=== PATIENT | female | born 1995 | race Caucasian/White ===

== ENCOUNTER 2017-01-07 20:52 | Emergency (ER) | payer OTHER ==
[~2017-01-07] VITALS: Ht 162.6 cm; Wt 74.8 kg
[~2017-01-07 20:52] MED LIST: MOTR200T44 PO; TYLE325T5 PO
[2017-01-07] MEDS ORDERED: CLINDAMYCIN 900 MG in APPROPRIATE DILUENT 1 EA IV ONE (22:00)
[2017-01-07] MEDS ORDERED: MORPHINE 4 MG/ML 1ML SYRINGE IV ONE (22:00)
[2017-01-07] MEDS ORDERED: ONDANSETRON 4MG/2ML VIAL (J2405) IV ONE (22:00)
[2017-01-07] MEDS ORDERED: ACETAMINOPHEN 325 MG TAB PO ONE (22:15)
[2017-01-07] MEDS ORDERED: dexameTHASONE 20 MG/5 ML VIAL (J1100) IV ONE (22:15)
[2017-01-07 22:45] LABS: BASO % 0.1 % (0.0-1.0); EOS % 0.1 % (0.0-3.0); LARGE UNSTAINED CELL # 0.2 K/mm3 (0.0-0.4); LARGE UNSTAINED CELL % 1.1 % (0.0-4.0); LYMPH # 0.7 K/mm3 (1.5-6.5); LYMPH % 3.4 % (24.0-44.0); MEAN CORPUSCULAR HEMOGLOBIN 31.6 pg (27.0-33.0); MEAN CORPUSCULAR HGB CONC 34.1 g/dl (32.0-36.5); MEAN CORPUSCULAR VOLUME 92.6 fl (80.0-96.0); MONO # 1.6 K/mm3 (0.0-0.8); MONO % 7.7 % (0.0-5.0); NEUTROPHILS # 17.9 K/mm3 (1.8-7.7); NEUTROPHILS % 87.7 % (36.0-66.0); PLATELET COUNT, AUTOMATED 210 k/mm3 (150-450); RED CELL DISTRIBUTION WIDTH 12.6 % (11.5-14.5); WHITE BLOOD COUNT 20.4 K/mm3 (4.0-10.0)
[2017-01-07 22:57] LABS: ANION GAP 9 MEQ/L (8-16); BLOOD UREA NITROGEN 9 MG/DL (7-18); CALCIUM LEVEL 9.3 MG/DL (8.5-10.1); CARBON DIOXIDE LEVEL 26 MEQ/L (21-32); CHLORIDE LEVEL 100 MEQ/L (98-107); GLOMERULAR FILTRATION RATE > 60.0 (>60); GLUCOSE, FASTING 99 MG/DL (70-105); POTASSIUM SERUM 3.6 MEQ/L (3.5-5.1); SODIUM LEVEL 135 MEQ/L (136-145)
[2017-01-07] MEDS ORDERED: ISOVUE-370 76% 100ML VIAL (Q9967) As Ordered ONE (23:00)
[2017-01-07] MEDS ORDERED: CLEO300C2 PO (23:56)
[2017-01-08] VITALS: BP 119/66
--- NOTE | 2017-01-08 08:49 | REPUSA ---
CLINICAL HISTORY: Suspected peritonsillar abscess formation. TECHNIQUE: Multiple axial CT images were obtained through the neck with IV contrast material. MPR cor onal and sagittal sequences were obtained. COMMENTS: Bilateral enlarged palatine tonsils. 1.5 cm right peritonsillar abscess formation. Free fluid in the right peritonsillar fat suggestive of peritonsillar phlegmon formation. Mild enlarged cervical lymph nodes with the largest measuring 1.3 cm. The piriform sinuses are normal. There is no supra or infraglottic laryngeal mass. The proximal trach ea is normal. There is no paravertebral soft tissue mass. The salivary glands are normal. There is no deep cervical or jugular lymphadenopathy. The paravertebral soft tissue space is normal. Limited images through the posterior fossa demonstrate no evidence for tonsilar herniation. Evaluation of the visualized lung apices reveals no evidence for abnormality. IMPRESSION: Bilateral changes of tonsillitis. Right peritonsillar phlegmon formation. Right peritonsillar abscess formation. No critical airway narrowing. Mild enlarged reactive cervical lymph nodes. Thank you for your kind referral of this patient.
== END 2017-01-08 00:06 | disposition left against medical advice (07) ==
LOC: M ED 21:48
DX: J36 Peritonsillar abscess (principal); F17.210 Nicotine dependence, cigarettes, uncomplicated; Z88.5 Allergy status to narcotic agent

== ENCOUNTER 2017-01-08 11:56 | Emergency (ER) | payer OTHER ==
[~2017-01-08] VITALS: Ht 162.6 cm; Wt 74.8 kg
[~2017-01-08 11:56] MED LIST changes: +CLEO300C2 PO
[2017-01-08] MEDS ORDERED: NS 1,000 ML IV ONE (13:15)
[2017-01-08] MEDS ORDERED: CLINDAMYCIN 900 MG in APPROPRIATE DILUENT 1 EA IV ONE (13:15)
[2017-01-08] MEDS ORDERED: dexameTHASONE 20 MG/5 ML VIAL (J1100) IV ONE (13:15)
[2017-01-08] MEDS ORDERED: LIDOCAINE W/EPINEPHRINE 1% 20ML VIAL As Ordered ONE (16:31)
[2017-01-08] MEDS ORDERED: LIDOCAINE W/EPINEPHRINE 1% 20ML VIAL SC ONE (16:45)
[2017-01-08 17:11] VITALS: BP 116/65
--- NOTE | 2017-01-13 12:42 | HPE ---
DATE OF ADMISSION: 01/08/2017 The patient is a 21-year-old female who presents with a history of sore throat which has been going on over the last week. She has not received any treatment. Examination today shows she has a right paratonsillar swelling. IMPRESSION: The patient has a right paratonsillar abscess. In the emergency room, I infiltrated the area with lidocaine with epinephrine. I then made an incision and drained purulent fluid from the paratonsillar space. The patient tolerated the procedure well. IMPRESSION: The patient had right paratonsillar abscess. Incision and drainage was performed. The patient can go home on oral antibiotic therapy and analgesic. The patient should return should her symptoms recur.
== END 2017-01-08 17:15 | disposition home or self-care (01) ==
LOC: M ED 13:00
DX: J36 Peritonsillar abscess (principal); Z88.5 Allergy status to narcotic agent

== ENCOUNTER 2017-02-05 00:54 | Emergency (ER) | payer OTHER ==
[~2017-02-05] VITALS: Ht 162.6 cm; Wt 81.6 kg
[2017-02-05 01:33] VITALS: BP 146/84
== END 2017-02-05 03:00 | disposition left against medical advice (07) ==
LOC: M ED 02:57
DX: R10.9 Unspecified abdominal pain (principal); Z53.21 Procedure and treatment not carried out due to patient leaving prior to being seen by health care provider

== ENCOUNTER → 2017-04-16 | Outpatient (CLI) | payer OTHER ==
[~2017-04-16] MED LIST changes: +FLOM5CAP PO; +ONDA4TAB5 PO
--- NOTE | 2017-04-17 04:54 | REP ---
Clinical: Anatomical evaluation. Comparison: None . Findings: Examination demonstrates a single live intrauterine in variable presentation. motion is identified by technologist. Placenta is noted posteriorly and grade zero without evidence for placenta previa or abruption. Amniotic fluid volume is normal. Cervix measures 4.0 cm in length and appears closed. No evidence for nuchal cord. Gestational age by LMP 17 weeks 3 days with SOFIYA 09/21/2017 . Gestational age by current measurements 17 weeks 4 day with SOFIYA is 09/20/2018 . FHR equals 144 beats per minute. BPD 3.8 cm 17 weeks 4 days HC 14.0 cm 17 weeks 2 days AC 12.6 cm 18 weeks 1 day FL 2.3 cm 16 weeks 6 days HL 2.5 cm 818 weeks 0 days HC/AC ratio 1.11 Estimated weight 190 grams ( 50th percentile). Anatomical assessment demonstrates normal structures including cranium, choroid plexus, cavum, cerebellum/posterior fossa, diaphragm, stomach, cord insertion/three-vessel cord, kidneys/bladder, and extremities. Limited evaluation of the facial features, heart/ventricular outflow tracts, lungs and spine. Impression: Single live intrauterine in variable presentation demonstrating appropriate interval growth. Anatomical limitations as described above. Remainder examination is normal. Signed by Angel Salvador MD 04/17/2017 04:45 A
== END ==
LOC: M RAD 16:00
PROVIDERS: ATTEND Nurse Practitioner Adult Health
DX: Z36 Encounter for antenatal screening of mother (principal); Z3A.17 17 weeks gestation of pregnancy

== ENCOUNTER 2017-05-17 03:05 | Outpatient (CLI) | payer OTHER ==
[~2017-05-17] VITALS: Ht 160 cm; Wt 79.0 kg
[~2017-05-17 03:05] MED LIST changes: -FLOM5CAP PO; -ONDA4TAB5 PO
[2017-05-17 03:20] VITALS: BP 121/63
[2017-05-17 04:37] LABS: CALCIUM OXALATE CRYSTALS MODERATE
[2017-05-17] MEDS ORDERED: LR 1,000 ML IV SCH (05:15)
[2017-05-17] MEDS ORDERED: LACTATED RINGER'S 1000 ML IV ONE (05:15)
[2017-05-17] MEDS ORDERED: FLUCONAZOLE 50MG TABLET PO ONE (05:30)
[2017-05-17 06:22] LABS: MEAN CORPUSCULAR HEMOGLOBIN 33.3 pg (27.0-33.0); MEAN CORPUSCULAR HGB CONC 35.1 g/dl (32.0-36.5); MEAN CORPUSCULAR VOLUME 94.8 fl (80.0-96.0); RED CELL DISTRIBUTION WIDTH 12.8 % (11.5-14.5); WHITE BLOOD COUNT 15.9 K/mm3 (4.0-10.0)
[2017-05-17 07:05] VITALS: BP 113/60
[2017-05-17] MEDS ORDERED: FLOM5CAP PO (08:49)
[2017-05-17] MEDS ORDERED: TAMSULOSIN 0.4 MG CAP PO SCH (09:00)
[2017-05-17] MEDS ORDERED: ONDA4TAB5 PO (09:15)
[2017-05-17 09:17] VITALS: BP 112/59
--- NOTE | 2017-05-17 10:26 | IPNPDOC ---
Text Note Date of Service The patient was seen on 05/17/17. NOTE Subjective: Patient is a 21 year old female who is a at 21.6 wks gestation based off of her LMP. She receives care from [facility]. She reports to L&D with complaints of vaginal pressure and and discharge. She reports this occurring for a few days. States that she had some back pain tonight with nausea and vomiting. Reports vomiting 6 times tonight. She reports slight nausea. States she feels dehydrated. Reports active movement. Denies vaginal bleeding or leaking of fluid. Objective: VS stable. Abdomen soft to palpation. No contractions noted on EFM. Doppler FHR 145. CVA tenderness right flank. Sterile speculum done and wet prep done. Moderate amount of yellow discharge done. Negative whiff test, Large amount of hyphae noted with small amount of yeast buds. Moderate amount of white blood cells noted in wet prep. Cervix appears multiporous and closed. Assessment: IUP AT 21.6 WKS gestation, kidney stone, candidiasis of the vagina Plan: UA consistent with a kidney stone. Patient has had a history of a kidney stone with similar symptoms. IV started with 800 cc bolus of LR then at 250cc/ hr. Given diflucan 1 tab. Given a dose of Flomax and 13 tab sent to pharmacy to take daily until stone passes. Patient reports she feels much better without nausea since she was given a fluid bolus. Patient to be discharged to home after her second bag of fluid is complete. Education done with patient on signs and symptoms that she needs to review with her providers. Patient to continue following up for her routine OB appointments. VS,Los, I+O VS, Alexsandere, I+O Laboratory Tests 05/17/17 06:01 Red Blood Count 3.26 L, Mean Corpuscular Volume 94.8, Mean Corpuscular Hemoglobin 33.3 H, Mean Corpuscular Hemoglobin Concent 35.1, Red Cell Distribution Width 12.8 Vital Signs Date Time Temp Pulse Resp B/P (MAP) Pulse Ox O2 Delivery O2 Flow Rate FiO2 05/17/17 09:17 97.3 86 18 112/59 (76) YADI MALIK CNM May 17, 2017 10:26
== END 2017-05-17 09:25 | disposition home or self-care (01) ==
LOC: M LDO 03:05
PROVIDERS: ATTEND Advanced Practice Midwife
DX: O99.612 Diseases of the digestive system complicating pregnancy, second trimester (principal); B37.3 Candidiasis of vulva and vagina; O21.9 Vomiting of pregnancy, unspecified; O26.892 Other specified pregnancy related conditions, second trimester; Z3A.21 21 weeks gestation of pregnancy; Z87.442 Personal history of urinary calculi

== ENCOUNTER 2017-08-24 21:33 | Outpatient (CLI) | payer OTHER ==
[~2017-08-24 21:33] MED LIST changes: +FLOM5CAP PO; +ONDA4TAB5 PO
[2017-08-24 22:53] LABS: MEAN CORPUSCULAR HEMOGLOBIN 32.3 pg (27.0-33.0); MEAN CORPUSCULAR HGB CONC 34.1 g/dl (32.0-36.5); MEAN CORPUSCULAR VOLUME 94.6 fl (80.0-96.0); PLATELET COUNT, AUTOMATED 252 10^3/uL (150-450); RED CELL DISTRIBUTION WIDTH 12.9 % (11.5-14.5); WHITE BLOOD COUNT 14.7 10^3/uL (4.0-10.0)
[2017-08-24 23:33] LABS: ALT/SGPT 16 U/L (12-78); AST/SGOT 15 U/L (7-37); BILIRUBIN,TOTAL 0.2 MG/DL (0.2-1.0); CREATININE FOR GFR 0.58 MG/DL (0.55-1.02); GLOMERULAR FILTRATION RATE > 60.0 (>60); URIC ACID 4.6 MG/DL (2.6-6.0)
== END 2017-08-24 23:40 | disposition home or self-care (01) ==
LOC: M LDO 21:33
PROVIDERS: ATTEND Advanced Practice Midwife
DX: O47.03 False labor before 37 completed weeks of gestation, third trimester (principal); Z3A.36 36 weeks gestation of pregnancy; R51 Headache; Z88.5 Allergy status to narcotic agent

== ENCOUNTER 2017-09-01 19:39 | Outpatient (CLI) | payer MEDICAID, OTHER ==
[~2017-09-01] VITALS: Ht 160 cm; Wt 92.0 kg
== END 2017-09-01 22:10 | disposition home or self-care (01) ==
LOC: M LDO 19:39
PROVIDERS: ATTEND Obstetrics & Gynecology
DX: O47.1 False labor at or after 37 completed weeks of gestation (principal); Z3A.37 37 weeks gestation of pregnancy; Z88.5 Allergy status to narcotic agent

== ENCOUNTER 2017-09-15 11:58 | Inpatient (IN) | payer MEDICAID ==
[2017-09-15] MEDS ORDERED: OXYTOCIN 30 UNITS IN 0.9% NaCl 500ML IV BAG (J2590) As Ordered (13:23)
[2017-09-15 13:35] LABS: MEAN CORPUSCULAR VOLUME 94.3 fl (80.0-96.0); PLATELET COUNT, AUTOMATED 232 10^3/uL (150-450); RED CELL DISTRIBUTION WIDTH 12.7 % (11.5-14.5); WHITE BLOOD COUNT 13.1 10^3/uL (4.0-10.0)
[2017-09-15] MEDS: OXYTOCIN DRIP 30 UNITS in APPROPRIATE DILUENT 1 EA IV ×2 (13:36→18:50)
[2017-09-15] MEDS: LACTATED RINGER'S 1000 ML IV (14:06)
[2017-09-15] MEDS: LR 1,000 ML IV (14:08)
[2017-09-15] MEDS: BUTORPHANOL 2 MG/ML INJ (J0595) IV (14:27)
[2017-09-15] MEDS: PROMETHAZINE INJ 25 MG/ML VIAL (J2550) IV (14:27)
[2017-09-15] MEDS ORDERED: IBUPROFEN 800 MG TAB PO (19:00)
[2017-09-15] MEDS ORDERED: DOCUSATE SODIUM 100 MG CAP PO (19:00)
[2017-09-15] MEDS ORDERED: DIBUCAINE 1% OINTMENT 30GM TOP (19:00)
[2017-09-15] MEDS ORDERED: ACETAMINOPHEN 500 MG TAB PO (19:00)
[2017-09-15] MEDS ORDERED: ANUSOL HC CREAM 30GM TOP (19:00)
[2017-09-15] MEDS ORDERED: METHYLERGONOVINE MALEATE 0.2 MG TAB PO (19:00)
[2017-09-16] MEDS: PRENATAL VITAMINS CHEWABLE TABLET PO (15:10)
[2017-09-16] MEDS: RHOGAM 300 MCG (1500 IU) INJ (J2790) IM (18:14)
[2017-09-16] MEDS: MEASLES,MUMPS,RUBELLA VACCINE INJ (MMR-II) (90707) SC (18:14)
[2017-09-17] MEDS: PRENATAL VITAMINS CHEWABLE TABLET PO (08:10)
== END 2017-09-17 14:00 | disposition home or self-care (01) | DRG 560 ==
LOC: M LDO 11:58 → M LDI 12:46 → M OBS 20:26
PROVIDERS: Obstetrics & Gynecology
PROC: 10E0XZZ Delivery of Products of Conception, External Approach (ICD-10-PCS; principal; 2017-09-15)
DX: O48.0 Post-term pregnancy (principal); O69.2XX0 Labor and delivery complicated by other cord entanglement, with compression, not applicable or unspecified; Z3A.40 40 weeks gestation of pregnancy; Z37.0 Single live birth

== ENCOUNTER 2017-12-18 16:42 | Emergency (ER) | payer OTHER, MEDICAID ==
[2017-12-18] MEDS: NS 1,000 ML IV (17:35)
[2017-12-18] MEDS: KETOROLAC 30 MG/ML VIAL (J1885) IV (17:35)
[2017-12-18] MEDS: ONDANSETRON 4MG/2ML VIAL (J2405) IV (17:36)
[2017-12-18 17:58] LABS: BASO % 0.2 % (0.0-1.0); EOS % 0.2 % (0.0-3.0); HEMATOCRIT 38.1 % (36.0-47.0); HEMOGLOBIN 12.6 g/dl (12.0-15.5); IMMATURE GRANULOCYTE % 0.4 % (0-3.0); MEAN CORPUSCULAR HEMOGLOBIN 30.4 pg (27.0-33.0); MEAN CORPUSCULAR HGB CONC 33.1 g/dl (32.0-36.5); MEAN CORPUSCULAR VOLUME 91.8 fl (80.0-96.0); NEUTROPHILS # 14.5 10^3/uL (1.8-7.7); NEUTROPHILS % 87.2 % (36.0-66.0); PLATELET COUNT, AUTOMATED 309 10^3/uL (150-450); RED BLOOD COUNT 4.15 10^6/uL (4.00-5.40); RED CELL DISTRIBUTION WIDTH 12.5 % (11.5-14.5); WHITE BLOOD COUNT 16.6 10^3/uL (4.0-10.0)
[2017-12-18 18:10] LABS: CONTROL LINE HCG INT CTR LINE PRESENT; HCG, SERUM QUALITATIVE NEGATIVE (NEGATIVE)
[2017-12-18 18:19] LABS: ALBUMIN 4.5 GM/DL (3.2-5.2); ALBUMIN/GLOBULIN RATIO 1.07 (1.00-1.93); ALKALINE PHOSPHATASE 60 U/L (45-117); ALT/SGPT 39 U/L (12-78); ANION GAP 5 MEQ/L (8-16); AST/SGOT 25 U/L (7-37); BILIRUBIN,DIRECT < 0.1 MG/DL (0.0-0.2); BILIRUBIN,TOTAL 0.3 MG/DL (0.2-1.0); BLOOD UREA NITROGEN 14 MG/DL (7-18); CALCIUM LEVEL 9.5 MG/DL (8.5-10.1); CARBON DIOXIDE LEVEL 28 MEQ/L (21-32); CHLORIDE LEVEL 107 MEQ/L (98-107); CREATININE FOR GFR 1.13 MG/DL (0.55-1.30); GLOMERULAR FILTRATION RATE > 60.0 (>60); GLUCOSE, FASTING 129 MG/DL (70-100); LIPASE 100 U/L (73-393); POTASSIUM SERUM 3.8 MEQ/L (3.5-5.1); SODIUM LEVEL 140 MEQ/L (136-145); TOTAL PROTEIN 8.7 GM/DL (6.4-8.2)
[2017-12-18 19:30] LABS: AMORPHOUS SEDIMENT RFX SMALL (NEGATIVE); KETONE, URINE AUTO RFX NEGATIVE (NEGATIVE); MUCUS, URINE RFX LARGE (NEGATIVE); NITRITE, URINE AUTO RFX NEGATIVE (NEGATIVE); RBC, URINE AUTO RFX 173 /HPF (0-3); SPECIFIC GRAVITY UR AUTO RFX 1.029 (1.002-1.035); SQUAM EPITHELIAL CELL UR AURFX 6 /HPF (0-6)
[2017-12-18 19:31] LABS: LEUKOCYTE ESTERASE UR AUTO RFX TRACE (NEGATIVE); WBC, URINE AUTO RFX 18 /HPF (0-3)
[2017-12-18] MEDS: CIPROFLOXACIN 500 MG TAB PO (20:15)
[2017-12-18] MEDS: TAMSULOSIN 0.4 MG CAP PO (20:15)
[2017-12-18] MEDS: NORCO 5/325MG TABLET (BULK FOR ED) PO (20:15)
== END 2017-12-18 20:20 | disposition home or self-care (01) ==
LOC: M ED 16:42
DX: N20.1 Calculus of ureter (principal); N30.00 Acute cystitis without hematuria; R11.10 Vomiting, unspecified; Z87.442 Personal history of urinary calculi; Z88.5 Allergy status to narcotic agent; Z91.030 Bee allergy status
CPT/HCPCS: J2405

== ENCOUNTER 2018-06-07 12:56 | Emergency (ER) | payer OTHER ==
[2018-06-07 14:12] LABS: BASO % 0.4 % (0.0-1.0); EOS # 0.2 10^3/uL (0.0-0.50); EOS % 2.6 % (0.0-3.0); HEMOGLOBIN 12.3 g/dl (12.0-15.5); IMMATURE GRANULOCYTE % 0.2 % (0-3.0); LYMPH # 1.5 10^3/uL (1.5-6.5); LYMPH % 15.9 % (24.0-44.0); MEAN CORPUSCULAR HEMOGLOBIN 31.5 pg (27.0-33.0); MEAN CORPUSCULAR HGB CONC 34.2 g/dl (32.0-36.5); MEAN CORPUSCULAR VOLUME 92.3 fl (80.0-96.0); MONO # 0.8 10^3/uL (0.0-0.8); MONO % 8.6 % (0.0-5.0); NEUTROPHILS # 6.7 10^3/uL (1.8-7.7); NEUTROPHILS % 72.3 % (36.0-66.0); PLATELET COUNT, AUTOMATED 296 10^3/uL (150-450); RED CELL DISTRIBUTION WIDTH 12.4 % (11.5-14.5); WHITE BLOOD COUNT 9.2 10^3/uL (4.0-10.0)
[2018-06-07 14:41] LABS: HCG, SERUM QUANTITATIVE 7 MIU/ML
== END 2018-06-07 15:57 | disposition left against medical advice (07) ==
LOC: M ED 12:56
DX: Z53.21 Procedure and treatment not carried out due to patient leaving prior to being seen by health care provider (principal)

== ENCOUNTER 2018-08-07 11:20 | Emergency (ER) | payer OTHER | END 2018-08-07 12:52 | disposition home or self-care (01) | LOC: M ED 11:20 | DX: S62.91XA Unspecified fracture of right hand, initial encounter for closed fracture (principal); W22.09XA Striking against other stationary object, initial encounter; Y92.009 Unspecified place in unspecified non-institutional (private) residence as the place of occurrence of the external cause; F17.210 Nicotine dependence, cigarettes, uncomplicated; Z91.030 Bee allergy status; Z88.5 Allergy status to narcotic agent | CPT/HCPCS: 73130 ==

== ENCOUNTER 2018-08-24 17:30 | Emergency (ER) | payer OTHER ==
[2018-08-24] MEDS: ONDANSETRON 4MG/2ML VIAL (J2405) IV (18:21)
[2018-08-24] MEDS: TAMSULOSIN 0.4 MG CAP PO (18:21)
[2018-08-24 18:22] LABS: BASO % 0.3 % (0.0-1.0); EOS # 0.1 10^3/uL (0.0-0.50); EOS % 0.6 % (0.0-3.0); HEMOGLOBIN 13.3 g/dl (12.0-15.5); IMMATURE GRANULOCYTE % 0.3 % (0-3.0); LYMPH # 1.2 10^3/uL (1.5-6.5); MEAN CORPUSCULAR HEMOGLOBIN 31.5 pg (27.0-33.0); MEAN CORPUSCULAR HGB CONC 33.3 g/dl (32.0-36.5); MEAN CORPUSCULAR VOLUME 94.8 fl (80.0-96.0); MONO # 1.1 10^3/uL (0.0-0.8); MONO % 7.5 % (0.0-5.0); NEUTROPHILS # 12.3 10^3/uL (1.8-7.7); NEUTROPHILS % 83.3 % (36.0-66.0); PLATELET COUNT, AUTOMATED 321 10^3/uL (150-450); RED BLOOD COUNT 4.22 10^6/uL (4.00-5.40); RED CELL DISTRIBUTION WIDTH 12.2 % (11.5-14.5); WHITE BLOOD COUNT 14.7 10^3/uL (4.0-10.0)
[2018-08-24] MEDS: NS 1,000 ML IV (18:22)
[2018-08-24] MEDS: MORPHINE 4 MG/ML 1ML VIAL/SYRINGE (J2270) IV ×2 (18:22→19:42)
[2018-08-24 18:30] LABS: ANION GAP 7 MEQ/L (8-16); BLOOD UREA NITROGEN 16 MG/DL (7-18); CALCIUM LEVEL 10.1 MG/DL (8.5-10.1); CARBON DIOXIDE LEVEL 27 MEQ/L (21-32); CHLORIDE LEVEL 107 MEQ/L (98-107); CREATININE FOR GFR 1.15 MG/DL (0.55-1.30); GLOMERULAR FILTRATION RATE > 60.0 (>60); GLUCOSE, FASTING 93 MG/DL (70-100); POTASSIUM SERUM 4.1 MEQ/L (3.5-5.1); SODIUM LEVEL 141 MEQ/L (136-145)
[2018-08-24 18:39] LABS: BILIRUBIN, URINE MANUAL NEGATIVE (NEGATIVE); GLUCOSE, URINE (UA) MANUAL NEGATIVE (NEGATIVE); KETONE, URINE MANUAL NEGATIVE (NEGATIVE); NITRITE, URINE MANUAL RFX NEGATIVE (NEGATIVE); PROTEIN, URINE MANUAL REFLEX 2+ mg/dL (NEGATIVE); SP GRAVITY,URINE MANUAL REFLEX 1.025 (1.002-1.035); UROBILINOGEN, URINE MANUAL NORMAL (NORMAL)
[2018-08-24 18:40] LABS: BLOOD URINE MANUAL RFX POSITIVE (NEGATIVE)
[2018-08-24 18:49] LABS: WBC, URINE MAN RFX 15-20 /hpf (0-3)
[2018-08-24 18:50] LABS: BACTERIA, URINE MOD AMOUNT; CALCIUM OXALATE CRYSTALS,URINE LARGE AMOUNT /hpf; HYALINE CAST, URINE NONE SEEN /lpf (0-1); MICROSCOPIC EXAM PERFORMED; MUCUS, URINE MOD AMOUNT (NEGATIVE); RBC, URINE 15-20 /hpf (0-3); SQUAMOUS EPITHELIAL CELL URINE MOD AMOUNT /hpf (SMALL AMT); TRANSITIONAL EPI CELLS, URINE SMALL AMOUNT /hpf
[2018-08-24 19:38] LABS: IONIZED CALCIUM 4.9 MG/DL (4.5-5.3)
[2018-08-24] MEDS: CIPROFLOXACIN 500 MG TAB PO (19:42)
[2018-08-24 20:02] LABS: MAGNESIUM LEVEL 1.5 MG/DL (1.8-2.4); PHOSPHORUS LEVEL 2.5 MG/DL (2.5-4.9); URIC ACID 4.6 MG/DL (2.6-6.0)
[2018-08-24] MEDS: POTASSIUM CITRATE 1080 MG (10MEQ) TAB PO (20:30)
[2018-08-24] MEDS: ONDANSETRON 4 MG ORAL DISINTEGRATING TAB (Q0162 PER 1MG) PO (20:42)
[2018-08-24] MEDS: NORCO 5/325MG TABLET (BULK FOR ED) PO (20:43)
== END 2018-08-24 20:46 | disposition home or self-care (01) ==
LOC: M ED 17:30
DX: N13.0 Hydronephrosis with ureteropelvic junction obstruction (principal); N15.9 Renal tubulo-interstitial disease, unspecified; D72.829 Elevated white blood cell count, unspecified; Z87.442 Personal history of urinary calculi; R51 Headache; R01.1 Cardiac murmur, unspecified; R42 Dizziness and giddiness; Z72.0 Tobacco use; Z79.899 Other long term (current) drug therapy; Z88.5 Allergy status to narcotic agent; Z91.030 Bee allergy status
CPT/HCPCS: J2270

== ENCOUNTER 2018-08-25 10:34 | Day surgery (SDC) | payer OTHER ==
[~2018-08-25] VITALS: Ht 160 cm; Wt 84.5 kg
[~2018-08-25 10:34] MED LIST changes: +CIPR-249 PO; +FLOM0.4C39 PO; -FLOM5CAP PO; +IBUP-1022 PO; +IBUP-1114 PO; +MAPA500T17 PO; +NORCOTAB PO; +POTA10808 PO; +PRENTAB9 PO; +ZOFR4TAB14 PO
[2018-08-25] MEDS ORDERED: GENTAMICIN 100 MG in APPROPRIATE DILUENT 1 EA IV ONE (11:00)
[2018-08-25] MEDS ORDERED: CIPROFLOXACIN 400 MG in APPROPRIATE DILUENT 1 EA IV ONE (11:00)
[2018-08-25] MEDS ORDERED: CONRAY-60 60% 50ML VIAL (Q9961) As Ordered ONE ×2 (14:22→15:05)
[2018-08-25] MEDS ORDERED: LIDOCAINE 2% INJ 100 MG/5 ML SDV (FOR ANES.) As Ordered ONE (14:23)
[2018-08-25] MEDS ORDERED: PROPOFOL 200 MG/20 ML VIAL As Ordered ONE (14:23)
[2018-08-25] MEDS ORDERED: fentaNYL 250 MCG/5 ML INJECTION (J3010) As Ordered ONE (14:23)
[2018-08-25] MEDS ORDERED: MIDAZOLAM INJ 2 MG/2 ML VIAL (J2250) As Ordered ONE (14:24)
[2018-08-25] MEDS ORDERED: KETOROLAC 60 MG/2 ML VIAL (J1885) As Ordered ONE (15:08)
[2018-08-25] MEDS ORDERED: METOCLOPRAMIDE INJ 10MG/2ML VIAL (J2765) As Ordered ONE (15:08)
[2018-08-25] MEDS ORDERED: ONDANSETRON 4MG/2ML VIAL (J2405) As Ordered ONE (15:08)
[2018-08-25] MEDS ORDERED: dexameTHASONE 4 MG/ML 1ML VIAL (J1100) As Ordered ONE (15:08)
[2018-08-25] MEDS ORDERED: LIDOCAINE 2% 5ML JELLY UROJET As Ordered ONE (15:17)
[2018-08-25] MEDS ORDERED: MEPERIDINE INJ 25 MG/ML VIAL (J2175) IV PRN (15:45)
[2018-08-25] MEDS ORDERED: ONDANSETRON 4MG/2ML VIAL (J2405) IV PRN (15:45)
[2018-08-25] MEDS ORDERED: LR 1,000 ML IV SCH ×2 (15:45→16:00)
[2018-08-25] MEDS ORDERED: METOCLOPRAMIDE INJ 10MG/2ML VIAL (J2765) IV PRN (15:45)
[2018-08-25] MEDS ORDERED: fentaNYL 100 MCG/2 ML INJECTION (J3010) IV PRN (15:45)
[2018-08-25] MEDS ORDERED: ACETAMINOPHEN 500 MG TAB PO PRN (15:45)
--- NOTE | 2018-08-25 15:58 | ROOPDOC ---
[facility] Report Of Operation Report of Operation DATE OF PROCEDURE: 08/25/18 PREPROCEDURE DIAGNOSES: left uvj stone (4x7mm); right mid pole stone (4-7mm); left low pole stone (<4mm). POSTPROCEDURE DIAGNOSES: same; s/p left uvj stone removal. PROCEDURE:cystoscopy retrograde pyelogram stent placement ([id number]) after balloon dilation with 12f balloon dilator. SURGEON: Lyndon Maddox MD MPH JOANNE ANESTHESIA: per anesthesia record. ESTIMATED BLOOD LOSS: Approximately <10 mL. COMPLICATIONS: none. REMARKS/FINDINGS: left stone in the distal ureter, trigonitis; urethral stricture (distal ureter). DESCRIPTION OF PROCEDURE: After history and physical, informed consent, the patient was taken to the room for the procedure. He laid supine for intubation and was then placed in lithotomy position, prepped and draped for cystoscopy, retrograde pyelogram, stent placed after balloon dilation and stone manipulation. A 22 f cystocope was placed in the urethra. A hybrid superstiff wire was placed up the ureter then the 12f balloon dilator was placed over to dilate the distal ureter. After 5min the balloon dilator was removed then along side wire a 7f semirigid scope was placed up the ureter to the UPJ. There was no stone visualized. The stone passed with the balloon removal and the stone basket (0 tip Bard) was used for the removal the stone. Then the wire was used to advancement of the 6 x 22-30 cm stent using Seldinger technique under direct visualization of the fluoroscopy. The patient tolerated the procedure well and was taken to the recovery room in stable condition. Lyndon Maddox MD Aug 25, 2018 15:58
[2018-08-25] MEDS ORDERED: DOXY100T PO (16:06)
[2018-08-25] MEDS ORDERED: TYLE500T78 PO (16:06)
[2018-08-25 16:35] VITALS: BP 127/73
--- NOTE | 2018-08-25 16:42 | REP ---
C-ARM VIEW, ABDOMEN: 12 C-ARM views of the abdomen are performed during placement of the left ureteral stent. There is a wire initially seen in the left ureter. A left ureteral stent is placed. The proximal end is coiled in the region of the left renal pelvis. Tie distal end is coiled in the region of the urinary bladder. 17 seconds of fluoroscopy time was utilized. Electronically Signed by Salinas Bingham MD 08/26/2018 03:15 P
[2018-09-04 00:07] LABS: CA Oxalate Dihy 40 % (.); Size 7x5x2 mm (.)
--- NOTE | 2018-09-22 14:16 | ROOPDOC ---
[facility] Report Of Operation Report of Operation [facility] [address] [place] [address] REPORT OF OPERATION NAME: CORBY YA : 1995 MED REC#: [id number] ROOM: UROLOGY Dictating: Lyndon Maddox MD PATIENT STATUS: REG POV Cosign: REPORT #: [id number] Other : cc: [facility] Report Of Operation Report of Operation DATE OF PROCEDURE: 08/25/18 PREPROCEDURE DIAGNOSES: left uvj stone (4x7mm); right mid pole stone (4-7mm); left low pole stone (<4mm). POSTPROCEDURE DIAGNOSES: same; s/p left uvj stone removal. PROCEDURE:cystoscopy retrograde pyelogram stent placement ([id number]) after balloon dilation with 12f balloon dilator. SURGEON: Lyndon Maddox MD MPH JOANNE ANESTHESIA: per anesthesia record. ESTIMATED BLOOD LOSS: Approximately <10 mL. COMPLICATIONS: none. REMARKS/FINDINGS: left stone in the distal ureter, trigonitis; urethral stricture (distal ureter). DESCRIPTION OF PROCEDURE: After history and physical, informed consent, the patient was taken to the room for the procedure. He laid supine for intubation and was then placed in lithotomy position, prepped and draped for cystoscopy, retrograde pyelogram, stent placed after balloon dilation and stone manipulation. A 22 f cystocope was placed in the urethra. A hybrid superstiff wire was placed up the ureter then the 12f balloon dilator was placed over to dilate the distal ureter. After 5min the balloon dilator was removed then along side wire a 7f semirigid scope was placed up the ureter to the UPJ. There was no stone visualized. The stone passed with the balloon removal and the stone basket (0 tip Bard) was used for the removal the stone. Then the wire was used to adva ncement of the 6 x 22-30 cm stent using Seldinger technique under direct visualization of the fluoroscopy. The patient tolerated the procedure well and was taken to the recovery room in stable condition. Lyndon Maddox MD, Marvalyn E MD Sep 22, 2018 14:16
== END 2018-08-25 16:38 | disposition home or self-care (01) ==
LOC: M SDC 10:34
PROVIDERS: ATTEND Urology Pediatric Urology
DX: N20.2 Calculus of kidney with calculus of ureter (principal); G43.909 Migraine, unspecified, not intractable, without status migrainosus; R01.1 Cardiac murmur, unspecified; Z88.5 Allergy status to narcotic agent; Z72.0 Tobacco use; Z87.442 Personal history of urinary calculi
CPT/HCPCS: 52332; 52352; 74420; 82360; 87086; 88300; C1769; C1894; C2617; J0744; J1100; J1885; J2250; J2405; J2765; J3010; Q9961

== ENCOUNTER 2018-09-23 06:44 | Day surgery (SDC) | payer OTHER ==
[~2018-09-23] VITALS: Ht 160 cm; Wt 78.9 kg
[~2018-09-23 06:44] MED LIST changes: +DOXY100T PO; +TYLE500T78 PO
[2018-09-23] MEDS ORDERED: CONRAY-60 60% 50ML VIAL (Q9961) As Ordered ONE ×2 (07:09→08:52)
[2018-09-23] MEDS ORDERED: LIDOCAINE 2% INJ 100 MG/5 ML SDV (FOR ANES.) As Ordered ONE (07:19)
[2018-09-23] MEDS ORDERED: MIDAZOLAM INJ 2 MG/2 ML VIAL (J2250) As Ordered ONE (07:19)
[2018-09-23] MEDS ORDERED: PROPOFOL 200 MG/20 ML VIAL As Ordered ONE (07:19)
[2018-09-23] MEDS ORDERED: fentaNYL 100 MCG/2 ML INJECTION (J3010) As Ordered ONE (07:20)
[2018-09-23] MEDS ORDERED: CIPROFLOXACIN 400 MG in APPROPRIATE DILUENT 1 EA IV ONE (07:30)
[2018-09-23] MEDS ORDERED: LR 1,000 ML IV ONE (07:30)
[2018-09-23 07:33] LABS: URINE PREG TEST NEGATIVE (NEGATIVE)
[2018-09-23] MEDS ORDERED: dexameTHASONE 4 MG/ML 1ML VIAL (J1100) As Ordered ONE (07:49)
[2018-09-23] MEDS ORDERED: ONDANSETRON 4MG/2ML VIAL (J2405) As Ordered ONE (08:45)
[2018-09-23] MEDS ORDERED: PHENYLephrine HCL 500 MCG/5 ML (100MCG/ML) SYRINGE (J2370) As Ordered ONE (08:45)
--- NOTE | 2018-09-23 09:19 | REP ---
Retrograde pyelogram: 39 views. History: Bilateral kidney stones. 41 seconds of fluoroscopy time is reported. Findings: A sequence of 39 last image hold fluoroscopically obtained spot radiographs of the abdomen document bilateral ureteral cannulation, contrast injection, of both ureters. No laterality markers are visible. There is evidence of what appears to be a right distal ureteral stricture. Electronically Signed by Jt Barnes MD 09/23/2018 04:58 P
[2018-09-23] MEDS ORDERED: FUROSEMIDE 20 MG/2 ML VIAL (J1940) As Ordered ONE (09:23)
--- NOTE | 2018-09-23 09:50 | ROOPDOC ---
[facility] Report Of Operation Report of Operation DATE OF PROCEDURE: 09/23/18 PREPROCEDURE DIAGNOSES: RIGHT LOWER POLE STONE; RIGHT DISTAL URETERAL SACULE/STRICTURE; RIGHT PELVIECTASIS; LEFT UPJ HOLD UP POSTPROCEDURE DIAGNOSES: SAME. PROCEDURE: BILATERAL RETROGRADE; LEFT STENT REMOVAL. SURGEON: ELIJAH MIN MD MPH JOANNE ANESTHESIA: LMA GENERAL. ESTIMATED BLOOD LOSS: Approximately <10 mL. COMPLICATIONS: none. REMARKS: ATTEMPT TO DO ESWL-ABORTED DUE TO POOR VISUALIZATION OF RIGHT LOWER POLE STONE (PATIENT FACTOR). ALTERNATIVES TO ESWL COULD NOT BE OFFERED D/T NOT HAVING ADEQUATE DIRECTIVES PRIOR TO SURGERY. TRIGONITIS PERSISTENT DESPITE DOXYCYCLINE. DESCRIPTION OF PROCEDURE: AFTER INFORMED CONSENT IN A 24F SINGLE FEMALE THE PATIENT TAKEN TO THE OPERATING SUITE FOR SURGERY: ESWL RIGHT POSSIBLE LEFT WITH STENT REMOVAL AND RETROGRADE PYELOGRAM. ROUTINE TIME OUT WAS PERFORMED AND MULTIPLE ATTEMPT TO FIND THE STONE ON XRAY AND US WAS UNSUCCESSFUL IN PART DUE TO BOWEL GAS OVER THE STONE BILATERAL. IT IS UNCLEAR THE PATIENT TOOK HER BOWEL PREP FOR THE PROCEDURE. ADMITTEDLY PAST IMAGING 08/24/18 ONCE IT WAS DETERMINED THAT THE STONE COULD NOT BE BROKEN UP BY ESWL THE PATIENT WAS MOVED TO THE CYSTO ROOM FOR STENT REMOVAL AND RETROGRADE PYELOGRAM. ROUTINE TIME OUT WAS PERFORMED AND THE PATIENT WAS THE PATIENT WAS PREPPED AND DRAPED WITH BETADINE. THEN, 21F CYSTOSCOPE AND FLEXIBLE FORCEP WAS USED TO REMOVE THE LEFT STENT. MOTION 0.035 WIRE WAS PLACED UP THE URETER AND STENT WAS EXCHANGED FOR 5F URETERAL CATHETER WHICH WAS USED FOR RETROGRADES (DESCRIBED BELOW). THE BLADDER HAD BEEN DRAINED AT THE END OF THE CASE. THE PATIENT TOLERATED THE PROCEDURE WELL AND WAS SENT TO RECOVERY ROOM IN EXCELLENT CONDITION. THE BLADDER HAD BEEN DRAINED AT THE END OF THE CASE. THE PATIENT TOLERATED THE PROCEDURE WELL AND WAS SENT TO RECOVERY ROOM IN EXCELLENT CONDITION. (DESCRIPTION OF RETROGRADE) USING THE OPEN ENDED URETERAL CATHETER AT THE LEFT FOR CONRAY RETROGRADE, WHICH DRAINED ADEQUATELY WITHOUT PROMPTING WAS DIFFERENT FROM THE FINDINGS OF PERFORMING RIGHT RETROGRADE WHICH DEMONSTRATED PELVIECTASIS ON THE RIGHT AND DISTAL URETERAL OBSTRUCTION/SACULE, WHICH DRAINED WITH PROMPTING (AFTER 925AM 10MG LASIX AND 500ML BOLUS OF NS) AFTER HAVING INFUSED THE CONTRAST AT 9AM (RETROGRADE). THE DELAY WAS SEEN AT 2ND IMAGE 927 WAS IMPROVED BY 932AM. PT STATES SHE STARTED BOWEL PREP AT 5P AND HAD SEVERAL BOWEL MOVEMENTS. THERE WAS QUITE A BIT OF GAS AND STOOL LEFT. LEFT MESSAGE ON HER PHONE FOR HER AT THE END OF PROCEDURE SHE TOLD US TO CALL HER PHONE TO GET IN TOUCH WITH HER . ELIJAH MIN MD MPH JOANNE Elijah Min MD Sep 23, 2018 09:50
[2018-09-23] MEDS ORDERED: DOXY100T PO (09:56)
[2018-09-23] MEDS ORDERED: FLOM0.4C39 PO (09:58)
[2018-09-23] MEDS ORDERED: fentaNYL 100 MCG/2 ML INJECTION (J3010) IV PRN (10:00)
[2018-09-23] MEDS ORDERED: NS 500 ML IV ONE (10:00)
[2018-09-23] MEDS ORDERED: LR 1,000 ML IV SCH (10:00)
[2018-09-23] MEDS ORDERED: MORPHINE 10 MG/ML 1ML VIAL (J2270) IV PRN (10:00)
[2018-09-23] MEDS ORDERED: FUROSEMIDE 20 MG/2 ML VIAL (J1940) IV ONE (10:00)
[2018-09-23] MEDS ORDERED: ONDANSETRON 4MG/2ML VIAL (J2405) IV PRN (10:00)
[2018-09-23] MEDS ORDERED: MAG-TAB2 PO (10:06)
--- NOTE | 2018-09-23 10:45 | REP ---
KUB: Single view obtained portably. HISTORY: Follow up right ureteral dilation. Comparison films from 9:32 a.m. on this date. FINDINGS: There is no longer observable contrast enhanced urine in the collecting system of the right kidney or right ureter. The bladder urine has washed out as well. There is equivocal opacity in the region of the renal pelvis on the left however there is considerable overlapping bowel gas. No urinary tract calculus is appreciated. IMPRESSION: The previously noted right ureteral and renal pelvic contrast has dissipated or washed out. Electronically Signed by Jt Barnes MD 09/23/2018 05:00 P
[2018-09-23 11:19] LABS: C REACTIVE PROTEIN QUANTITATIV < 0.30 MG/DL (0.00-0.30); CREATININE FOR GFR 0.73 MG/DL (0.55-1.30); GLOMERULAR FILTRATION RATE > 60.0 (>60); MAGNESIUM LEVEL 1.6 MG/DL (1.8-2.4); POTASSIUM SERUM 3.9 MEQ/L (3.5-5.1)
[2018-09-23 12:11] VITALS: BP 128/63
--- NOTE | 2018-09-23 16:41 | REP ---
KUB: Single view. History: Bilateral kidney stones. Comparison study August 24, 2018. Findings: A double pigtail left sided ureteral stent is noted in place. There are calcific opacities projecting over the right kidney upper and lower pole as before. There is a calcification overlying the mid sacrum on the right, which could be in the distal ureter. This is unchanged in position from August 24, 2018. Impression: Left ureteral stent. Right nephrolithiasis. Question right ureterolithiasis. Electronically Signed by Jt Barnes MD 09/23/2018 05:12 P
--- NOTE | 2018-09-23 20:49 | REP ---
Clinical: Right ureteral/bladder abnormality. Technique: Two supine views of the abdomen/pelvis. Findings: Irregular appearance to the right renal collecting system suggesting dilated moiety along with a standing right ureteral contrast column and contrast within the bladder noted. Visualized bowel gas pattern is nonspecific. The skeletal structures are intact. Impression: Findings suggesting a dilated right renal moiety. Electronically Signed by Angel Salvador MD 09/23/2018 08:41 P
--- NOTE | 2018-09-23 20:51 | REP ---
Clinical: Abnormal right urinary tract collecting system. Technique: Portable supine view of the abdomen and pelvis. Findings: There is grade 4 dilatation of the right renal collecting system and ureter. Contrast within the left renal collecting system demonstrates normal renal pelvis and calyces. Visualized portions of the bladder appear normal. The bowel gas pattern is nonspecific. No abnormal calcifications. Impression: Grade 4 dilatation of the right urinary tract collecting system. Electronically Signed by Angel Salvador MD 09/23/2018 08:43 P
== END 2018-09-23 12:30 | disposition home or self-care (01) ==
LOC: M SDC 06:44
PROVIDERS: ATTEND Urology Pediatric Urology
DX: N20.0 Calculus of kidney (principal); N30.30 Trigonitis without hematuria; N13.30 Unspecified hydronephrosis; N13.5 Crossing vessel and stricture of ureter without hydronephrosis; E16.2 Hypoglycemia, unspecified; R01.1 Cardiac murmur, unspecified; M41.9 Scoliosis, unspecified; G43.909 Migraine, unspecified, not intractable, without status migrainosus; H81.49 Vertigo of central origin, unspecified ear; D72.829 Elevated white blood cell count, unspecified; T88.59XD Other complications of anesthesia, subsequent encounter; E66.9 Obesity, unspecified; Z68.31 Body mass index [BMI] 31.0-31.9, adult; Z88.5 Allergy status to narcotic agent; Z91.030 Bee allergy status; Z72.0 Tobacco use
CPT/HCPCS: 36415; 50590; 52332; 74018; 74420; 82565; 83735; 84132; 84550; 84703; 86140; 87086; 88108; C1769; J0744; J1100; J1940; J2250; J2370; J2405; J3010; Q9961

== ENCOUNTER 2022-08-14 17:04 | Emergency (ER) | payer OTHER ==
[~2022-08-14] VITALS: Ht 160 cm; Wt 85.9 kg
[~2022-08-14 17:04] MED LIST changes: +HYDR-3715 PO; +MAG-TAB2 PO; -MAPA500T17 PO; +MAPA500T2 PO; -NORCOTAB PO; +ONDA-83 PO; -ONDA4TAB5 PO
[2022-08-14 17:06] VITALS: BP 134/67
== END 2022-08-14 19:55 | disposition left against medical advice (07) ==
LOC: M ED 17:04
DX: Z53.21 Procedure and treatment not carried out due to patient leaving prior to being seen by health care provider (principal)

== ENCOUNTER 2022-10-17 19:48 | Inpatient (IN) | payer OTHER ==
[~2022-10-17] VITALS: Ht 160 cm; Wt 87.6 kg
[2022-10-17 21:14] LABS: ALBUMIN 4.7 G/DL (3.2-5.2); ALKALINE PHOSPHATASE 64 U/L (46-116); ALT/SGPT 19 U/L (7.0-40); AST/SGOT 20 U/L (<34); BILIRUBIN,TOTAL 0.3 MG/DL (0.3-1.2); BLOOD UREA NITROGEN 17 MG/DL (9-23); CALCIUM LEVEL 9.4 MG/DL (8.5-10.1); CARBON DIOXIDE LEVEL 24 MMOL/L (20-31); CHLORIDE LEVEL 108 MMOL/L (98-107); CREATININE FOR GFR 0.88 MG/DL (0.55-1.30); GLOMERULAR FILTRATION RATE > 60.0 (>60); GLUCOSE, FASTING 95 MG/DL (60-100); POTASSIUM SERUM 4.4 MMOL/L (3.5-5.1); SODIUM LEVEL 143 MMOL/L (136-145); TOTAL PROTEIN 7.4 G/DL (5.7-8.2)
[2022-10-17 21:16] LABS: HCG, SERUM QUALITATIVE NEGATIVE (NEGATIVE)
[2022-10-17 21:37] LABS: HEMATOCRIT 39.6 % (36.0-47.0); HEMOGLOBIN 13.4 g/dl (12.0-15.5); MEAN CORPUSCULAR HEMOGLOBIN 31.6 pg (27.0-33.0); MEAN CORPUSCULAR HGB CONC 33.8 g/dl (32.0-36.5); MEAN CORPUSCULAR VOLUME 93.4 fl (80.0-96.0); PLATELET COUNT, AUTOMATED 290 10^3/uL (150-450); RED BLOOD COUNT 4.24 10^6/uL (4.00-5.40); WHITE BLOOD COUNT 20.2 10^3/uL (4.0-10.0)
[2022-10-17] MEDS ORDERED: ONDANSETRON 4MG 2ML VIAL IV ONE (22:10)
[2022-10-17] MEDS ORDERED: KETOROLAC 30 MG/ML 1ML VIAL IV ONE (22:10)
[2022-10-18] VITALS (10 sets, daily range): BP systolic 112–127; BP diastolic 63–70
[2022-10-18] MEDS ORDERED: HOME MED LIST COMPLETE! XX SCH (00:55)
[2022-10-18] MEDS ORDERED: PROMETHAZINE 25MG/ML 1ML VIAL IV PRN (01:45)
[2022-10-18] MEDS ORDERED: MORPHINE 4 MG/ML 1ML VIAL IV PRN (02:00)
[2022-10-18 02:10] LABS: RSV AMPLIFICATION NEGATIVE (NEGATIVE)
[2022-10-18] MEDS: NS 1,000 ML IV SCH ×2 (04:38→12:48)
[2022-10-18] MEDS: cefTRIAXone SOD 1 GM in D5W MINI-BAG PLUS 50 ML IV SCH (04:38)
[2022-10-18] MEDS ORDERED: diphenhydrAMINE 50MG/ML VIAL IV ONE (05:00)
[2022-10-18] MEDS ORDERED: FAMOTIDINE 20MG/2ML VIAL IVP ONE (05:00)
[2022-10-18] MEDS: HEPARIN SOD (PORCINE) 5000UNITS/ML 1ML VIAL/SYRINGE SC SCH ×3 (06:00→21:16)
[2022-10-18 07:21] LABS: HEMATOCRIT 33.4 % (36.0-47.0); MEAN CORPUSCULAR HEMOGLOBIN 31.1 pg (27.0-33.0); MEAN CORPUSCULAR HGB CONC 32.9 g/dl (32.0-36.5); MEAN CORPUSCULAR VOLUME 94.4 fl (80.0-96.0); PLATELET COUNT, AUTOMATED 255 10^3/uL (150-450); RED BLOOD COUNT 3.54 10^6/uL (4.00-5.40); WHITE BLOOD COUNT 12.6 10^3/uL (4.0-10.0)
[2022-10-18 07:47] LABS: ALBUMIN 3.6 G/DL (3.2-5.2); ALKALINE PHOSPHATASE 51 U/L (46-116); ALT/SGPT 13 U/L (7.0-40); AST/SGOT 16 U/L (<34); BILIRUBIN,TOTAL 0.4 MG/DL (0.3-1.2); BLOOD UREA NITROGEN 17 MG/DL (9-23); CALCIUM LEVEL 8.6 MG/DL (8.5-10.1); CARBON DIOXIDE LEVEL 25 MMOL/L (20-31); CHLORIDE LEVEL 111 MMOL/L (98-107); CREATININE FOR GFR 0.77 MG/DL (0.55-1.30); GLOMERULAR FILTRATION RATE > 60.0 (>60); GLUCOSE, FASTING 81 MG/DL (60-100); POTASSIUM SERUM 4.1 MMOL/L (3.5-5.1); SODIUM LEVEL 143 MMOL/L (136-145); TOTAL PROTEIN 5.8 G/DL (5.7-8.2)
[2022-10-18] MEDS ORDERED: fentaNYL 100 MCG/2 ML INJECTION As Ordered ONE (13:26)
[2022-10-18] MEDS ORDERED: MIDAZOLAM INJ 2MG/2ML VIAL As Ordered ONE (13:26)
[2022-10-18] MEDS ORDERED: propofoL 200 MG/20 ML VIAL As Ordered ONE (13:26)
[2022-10-18] MEDS ORDERED: LIDOCAINE 2% 100MG/5ML SDV (FOR ANES.) As Ordered ONE (13:26)
[2022-10-18] MEDS ORDERED: LIDOCAINE 2% 5ML JELLY UROJET As Ordered ONE (13:50)
[2022-10-18] MEDS ORDERED: CIPROFLOXACIN/D5W 400 MG/200 ML BAG As Ordered ONE (13:50)
[2022-10-18] MEDS ORDERED: ISOVUE-M 300 61% 15ML VIAL As Ordered ONE (13:52)
[2022-10-18] MEDS ORDERED: fentaNYL 100 MCG/2 ML INJECTION IV PRN (14:10)
[2022-10-18] MEDS ORDERED: LR 1,000 ML IV SCH (14:10)
[2022-10-18] MEDS ORDERED: NORCO, ANEXSIA 5/325MG TABLET (HYDROcodone/ACETAMINOPHEN) PO PRN (14:10)
[2022-10-18] MEDS ORDERED: ONDANSETRON 4MG 2ML VIAL IV PRN (14:10)
[2022-10-18] MEDS: ACETAMINOPHEN TAB 650MG DOSE (2X325MG) PO PRN (21:10)
[2022-10-19] MEDS: cefTRIAXone SOD 1 GM in D5W MINI-BAG PLUS 50 ML IV SCH (02:18)
[2022-10-19 03:45] VITALS: BP 109/54
[2022-10-19] MEDS: HEPARIN SOD (PORCINE) 5000UNITS/ML 1ML VIAL/SYRINGE SC SCH (05:09)
[2022-10-19] MEDS: ACETAMINOPHEN TAB 650MG DOSE (2X325MG) PO PRN ×2 (05:10→09:20)
[2022-10-19 07:45] VITALS: BP 112/64
[2022-10-19] MEDS ORDERED: ACET1TAB55 PO (07:49)
[2022-10-19] MEDS ORDERED: CEFU50TA PO (07:49)
== END 2022-10-19 10:32 | disposition home or self-care (01) | DRG 463 ==
LOC: M ED 19:48 → M ED INP 10-18 01:32 → ENRESERV 10-18 03:40 → M MSPAV 10-18 05:09
PROVIDERS: ADMIT Family Medicine; ATTEND Internal Medicine
PROC: 0T768DZ Dilation of Right Ureter with Intraluminal Device, Via Natural or Artificial Opening Endoscopic (ICD-10-PCS; principal; 2022-10-18 11:19)
DX: N13.6 Pyonephrosis (principal); Z88.5 Allergy status to narcotic agent; N83.02 Follicular cyst of left ovary; Z87.891 Personal history of nicotine dependence; Z91.030 Bee allergy status

== ENCOUNTER → 2022-10-29 | Outpatient (REF) | payer OTHER ==
[~2022-10-29] MED LIST changes: +ACET1TAB55 PO; +CEFU50TA PO
[2022-10-29 19:06] LABS: APPEARANCE, URINE MANUAL CLOUDY (CLEAR); COLOR, URINE MANUAL BROWN (YELLOW)
[2022-10-29 19:07] LABS: BILIRUBIN, URINE MANUAL NEGATIVE (NEGATIVE); BLOOD URINE MANUAL POSITIVE (NEGATIVE); GLUCOSE, URINE (UA) MANUAL NEGATIVE (NEGATIVE); KETONE, URINE MANUAL NEGATIVE (NEGATIVE); LEUKOCYTE ESTERASE, URINE MAN POSITIVE (NEGATIVE); NITRITE, URINE MANUAL NEGATIVE (NEGATIVE); PROTEIN, URINE MANUAL 3+ mg/dL (NEGATIVE); UROBILINOGEN, URINE MANUAL NORMAL (NORMAL)
[2022-10-29 19:48] LABS: RBC, URINE TNTC /hpf (0-3); WBC, URINE 40-50 /hpf (0-3)
[2022-10-29 19:49] LABS: BACTERIA, URINE MOD AMOUNT; SQUAMOUS EPITHELIAL CELL URINE SMALL AMOUNT /hpf (SMALL AMT)
[2022-10-29 19:50] LABS: CALCIUM OXALATE CRYSTALS,URINE MOD AMOUNT /hpf; HYALINE CAST, URINE NONE SEEN /lpf (0-1); MUCUS, URINE SMALL AMOUNT (NEGATIVE)
== END ==
LOC: M SMT 17:34
PROVIDERS: ATTEND Physician Assistant
DX: Z48.816 Encounter for surgical aftercare following surgery on the genitourinary system (principal)

== ENCOUNTER → 2022-12-02 | Outpatient (POV) | payer OTHER ==
[~2022-12-02] VITALS: Ht 160 cm; Wt 82.7 kg
[~2022-12-02] MED LIST changes: +HYDR-643 PO; +ONDA4TAB6 PO; +OXYB5TAB10 PO; +TRAM50TA2 PO
[2022-12-02 08:55] VITALS: BP 129/67
== END ==
LOC: M IRPOV 08:45
PROVIDERS: ATTEND Radiology Diagnostic Radiology
DX: N20.0 Calculus of kidney (principal); Z84.1 Family history of disorders of kidney and ureter; Z87.891 Personal history of nicotine dependence; Z88.5 Allergy status to narcotic agent; Z91.030 Bee allergy status

== ENCOUNTER → 2022-12-05 | Outpatient (CLI) | payer OTHER ==
[2022-12-05 11:45] LABS: AMORPHOUS SEDIMENT SMALL (NEGATIVE); APPEARANCE, URINE CLOUDY (CLEAR); BACTERIA, URINE AUTO 1+ (NEGATIVE); BILIRUBIN, URINE AUTO NEGATIVE (NEGATIVE); BLOOD, URINE BLOOD 3+ (NEGATIVE); COLOR, URINE YELLOW (YELLOW); GLUCOSE, URINE (UA) AUTO NEGATIVE (NEGATIVE); KETONE, URINE AUTO NEGATIVE (NEGATIVE); LEUKOCYTE ESTERASE, URINE AUTO 3+ (NEGATIVE); NITRITE, URINE AUTO NEGATIVE (NEGATIVE); PROTEIN, URINE AUTO 3+ mg/dL (NEGATIVE); RBC, URINE AUTO TNTC /HPF (0-3); SPECIFIC GRAVITY URINE AUTO 1.014 (1.002-1.035); SQUAMOUS EPITHELIAL CELL UR AU 8 /HPF (0-6); UROBILINOGEN, URINE AUTO 0.2 mg/dL (0.0-2.0); WBC, URINE AUTO 51 /HPF (0-3)
== END ==
LOC: M RAD 10:41 → M LAB 10:41
PROVIDERS: ATTEND Physician Assistant
DX: Z01.818 Encounter for other preprocedural examination (principal)

== ENCOUNTER → 2022-12-12 | Outpatient (CLI) | payer OTHER | LOC: M LABSMTC 08:51 | PROVIDERS: ATTEND Anesthesiology | DX: Z01.812 Encounter for preprocedural laboratory examination (principal) ==

== ENCOUNTER → 2022-12-15 | Outpatient (CLI) | payer OTHER ==
[~2022-12-15] MED LIST changes: +COLA100C5 PO; +ISOVUE-300 61% 100ML VIAL As Ordered ONE; +LIDOCAINE 1% MDV 20ML VIAL As Ordered ONE; +MIDAZOLAM INJ 2MG/2ML VIAL As Ordered ONE; +NS 1,000 ML IV SCH; +PROMETHAZINE 25MG/ML 1ML VIAL As Ordered ONE; +ceFAZolin 2 GM/D5W 50 ML IV BAG As Ordered ONE; +ceFAZolin SOD 1 GM in D5W MINI-BAG PLUS 50 ML IV ONE; +ceFAZolin SOD 2 GM in IV 1 EA IV ONE; +diphenhydrAMINE 50MG/ML VIAL As Ordered ONE; +fentaNYL 100 MCG/2 ML INJECTION As Ordered ONE
[2022-12-15 15:30] VITALS: BP 141/76
== END ==
LOC: M IRPRO 10:31
PROVIDERS: ATTEND Radiology Diagnostic Radiology
DX: N13.2 Hydronephrosis with renal and ureteral calculous obstruction (principal); Z88.5 Allergy status to narcotic agent; Z88.8 Allergy status to other drugs, medicaments and biological substances; Z91.030 Bee allergy status
CPT/HCPCS: 50433; C1758; C1769; C1894; J0690; J1200; J2250; J2550; J3010; Q9967

== ENCOUNTER 2022-12-17 06:57 | Inpatient (IN) | payer OTHER ==
[~2022-12-17] VITALS: Ht 160 cm; Wt 87.1 kg
[2022-12-17] VITALS (7 sets, daily range): BP systolic 112–128; BP diastolic 64–77
[~2022-12-17 06:57] MED LIST changes: -COLA100C5 PO; -ISOVUE-300 61% 100ML VIAL As Ordered ONE; -LIDOCAINE 1% MDV 20ML VIAL As Ordered ONE; -MIDAZOLAM INJ 2MG/2ML VIAL As Ordered ONE; -NS 1,000 ML IV SCH; -PROMETHAZINE 25MG/ML 1ML VIAL As Ordered ONE; -ceFAZolin 2 GM/D5W 50 ML IV BAG As Ordered ONE; -ceFAZolin SOD 1 GM in D5W MINI-BAG PLUS 50 ML IV ONE; -ceFAZolin SOD 2 GM in IV 1 EA IV ONE; -diphenhydrAMINE 50MG/ML VIAL As Ordered ONE; -fentaNYL 100 MCG/2 ML INJECTION As Ordered ONE
[2022-12-17] MEDS ORDERED: ONDANSETRON 4MG 2ML VIAL As Ordered ONE (08:06)
[2022-12-17] MEDS ORDERED: fentaNYL 250 MCG/5 ML INJECTION As Ordered ONE (08:06)
[2022-12-17] MEDS ORDERED: ROCURONIUM BROMIDE 50MG/5ML VIAL As Ordered ONE ×2 (08:06→11:53)
[2022-12-17] MEDS ORDERED: MIDAZOLAM INJ 2MG/2ML VIAL As Ordered ONE (08:06)
[2022-12-17] MEDS ORDERED: LIDOCAINE 2% 100MG/5ML SDV (FOR ANES.) As Ordered ONE (08:06)
[2022-12-17] MEDS ORDERED: propofoL 200 MG/20 ML VIAL As Ordered ONE ×2 (08:06→12:48)
[2022-12-17] MEDS ORDERED: ACETAMINOPHEN 1000MG 100ML IV BAG As Ordered ONE (08:11)
[2022-12-17] MEDS ORDERED: LR 1,000 ML IV SCH ×2 (08:15→14:10)
[2022-12-17] MEDS ORDERED: ceFAZolin SOD 2 GM in IV 1 EA IV ONE (08:35)
[2022-12-17] MEDS ORDERED: ISOVUE-300 61% 100ML VIAL As Ordered ONE (09:57)
[2022-12-17] MEDS ORDERED: PERCOCET 5MG/325MG TAB PO PRN ×2 (10:25)
[2022-12-17] MEDS ORDERED: ACETAMINOPHEN TAB 650MG DOSE (2X325MG) PO PRN (10:25)
[2022-12-17] MEDS ORDERED: ONDANSETRON 4MG 2ML VIAL IV PRN ×2 (10:25→14:10)
[2022-12-17] MEDS ORDERED: SUGAMMADEX SODIUM 500 MG/5 ML VIAL (BRIDION) As Ordered ONE (11:06)
[2022-12-17] MEDS ORDERED: PHENYLephrine 500MCG 5ML (100MCG/ML) SYRINGE As Ordered ONE (11:06)
[2022-12-17] MEDS ORDERED: HYDROmorphone HCL 2MG/ML 1ML VIAL As Ordered ONE (12:03)
[2022-12-17] MEDS ORDERED: fentaNYL 100 MCG/2 ML INJECTION IV PRN (14:10)
[2022-12-17] MEDS ORDERED: HYDROMORPHONE HCL 0.5 MG/ 0.5 ML SYRINGE IV PRN (14:10)
[2022-12-17 14:30] LABS: HEMATOCRIT 40.5 % (36.0-47.0); HEMOGLOBIN 13.1 g/dl (12.0-15.5); MEAN CORPUSCULAR HEMOGLOBIN 31.6 pg (27.0-33.0); MEAN CORPUSCULAR HGB CONC 32.3 g/dl (32.0-36.5); MEAN CORPUSCULAR VOLUME 97.6 fl (80.0-96.0); PLATELET COUNT, AUTOMATED 284 10^3/uL (150-450); RED BLOOD COUNT 4.15 10^6/uL (4.00-5.40); WHITE BLOOD COUNT 11.3 10^3/uL (4.0-10.0)
[2022-12-17] MEDS: NS 1,000 ML IV SCH ×2 (14:56→21:45)
[2022-12-17 15:05] LABS: BLOOD UREA NITROGEN 12 MG/DL (9-23); CALCIUM LEVEL 8.9 MG/DL (8.5-10.1); CARBON DIOXIDE LEVEL 22 MMOL/L (20-31); CHLORIDE LEVEL 107 MMOL/L (98-107); CREATININE FOR GFR 0.67 MG/DL (0.55-1.30); GLOMERULAR FILTRATION RATE > 60.0 (>60); GLUCOSE, FASTING 82 MG/DL (60-100); SODIUM LEVEL 137 MMOL/L (136-145)
[2022-12-17] MEDS ORDERED: traMADol 50 MG TAB PO PRN (17:25)
[2022-12-17] MEDS ORDERED: ONDA-83 PO (17:42)
[2022-12-17] MEDS ORDERED: ACET1TAB55 PO (17:42)
[2022-12-17] MEDS ORDERED: HOME MED LIST COMPLETE! XX SCH (17:45)
[2022-12-17] MEDS: traMADol 50 MG TAB PO PRN ×2 (17:45→21:45)
[2022-12-17] MEDS: ceFAZolin SOD 1 GM in D5W MINI-BAG PLUS 50 ML IV SCH (17:49)
[2022-12-17] MEDS: DOCUSATE SODIUM 100MG CAPSULE PO SCH (21:45)
[2022-12-18 02:23] VITALS: BP 112/64
[2022-12-18] MEDS: ceFAZolin SOD 1 GM in D5W MINI-BAG PLUS 50 ML IV SCH (03:40)
[2022-12-18 05:21] VITALS: BP 111/64
[2022-12-18] MEDS ORDERED: COLA100C5 PO (07:19)
[2022-12-18 08:31] LABS: HEMATOCRIT 33.6 % (36.0-47.0); MEAN CORPUSCULAR HEMOGLOBIN 31.2 pg (27.0-33.0); MEAN CORPUSCULAR VOLUME 94.4 fl (80.0-96.0); PLATELET COUNT, AUTOMATED 283 10^3/uL (150-450); RED BLOOD COUNT 3.56 10^6/uL (4.00-5.40); WHITE BLOOD COUNT 14.2 10^3/uL (4.0-10.0)
[2022-12-18 08:32] LABS: HEMOGLOBIN 11.1 g/dl (12.0-15.5)
[2022-12-18] MEDS: DOCUSATE SODIUM 100MG CAPSULE PO SCH (08:41)
[2022-12-18 08:45] LABS: BLOOD UREA NITROGEN 10 MG/DL (9-23); CALCIUM LEVEL 8.7 MG/DL (8.5-10.1); CARBON DIOXIDE LEVEL 27 MMOL/L (20-31); CHLORIDE LEVEL 106 MMOL/L (98-107); CREATININE FOR GFR 0.69 MG/DL (0.55-1.30); GLOMERULAR FILTRATION RATE > 60.0 (>60); GLUCOSE, FASTING 86 MG/DL (60-100); POTASSIUM SERUM 4.4 MMOL/L (3.5-5.1); SODIUM LEVEL 138 MMOL/L (136-145)
[2022-12-18 10:00] VITALS: BP 127/69
[2022-12-23 23:08] LABS: CA Hydro Phos 30 % (.); Ca Ox Monohydrate 30 % (.); Size 10x12 mm (.)
== END 2022-12-18 14:40 | disposition home or self-care (01) | DRG 443 ==
LOC: M OR 06:57 → M MS5PR 14:40
PROVIDERS: ADMIT Urology; ATTEND Urology
PROC: 0T763DZ Dilation of Right Ureter with Intraluminal Device, Percutaneous Approach (ICD-10-PCS; 2022-12-17)
PROC: 0TC03ZZ Extirpation of Matter from Right Kidney, Percutaneous Approach (ICD-10-PCS; principal; 2022-12-17 09:00)
DX: N20.0 Calculus of kidney (principal); Z79.899 Other long term (current) drug therapy; Z88.5 Allergy status to narcotic agent; Z88.8 Allergy status to other drugs, medicaments and biological substances; Z91.030 Bee allergy status

== ENCOUNTER → 2023-03-04 | Outpatient (CLI) | payer OTHER ==
[~2023-03-04] MED LIST changes: +COLA100C5 PO
== END ==
LOC: M PAIN 13:00
PROVIDERS: ATTEND Anesthesiology
DX: M54.50 Low back pain, unspecified (principal); M79.10 Myalgia, unspecified site; M79.18 Myalgia, other site; G57.90 Unspecified mononeuropathy of unspecified lower limb; M41.9 Scoliosis, unspecified; G43.909 Migraine, unspecified, not intractable, without status migrainosus; Z87.891 Personal history of nicotine dependence; Z79.891 Long term (current) use of opiate analgesic; Z79.899 Other long term (current) drug therapy; Z88.5 Allergy status to narcotic agent; Z88.8 Allergy status to other drugs, medicaments and biological substances; Z91.030 Bee allergy status

== ENCOUNTER → 2023-05-14 | Outpatient (CLI) | payer OTHER ==
[~2023-05-14] MED LIST changes: +TRIAMCINOLONE ACETONIDE SUSP 40MG/ML 1ML VIAL As Ordered ONE; +diazePAM 5MG TABLET As Ordered ONE
== END ==
LOC: M PAIN 13:00
PROVIDERS: ATTEND Anesthesiology
DX: M79.18 Myalgia, other site (principal); M41.9 Scoliosis, unspecified; G43.909 Migraine, unspecified, not intractable, without status migrainosus; Z79.899 Other long term (current) drug therapy; Z87.891 Personal history of nicotine dependence; Z88.5 Allergy status to narcotic agent; Z88.8 Allergy status to other drugs, medicaments and biological substances; Z91.030 Bee allergy status
CPT/HCPCS: 20552; J0665; J3301